=== PATIENT | male | born 2000 | race Caucasian/White ===

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

== ENCOUNTER 2022-11-20 08:20 | Emergency (ER) | payer BC, OTHER, SELFPAY ==
[2022-11-20] MEDS ORDERED: Bupivacaine HCl 0.5%/Epinephrine 1:200,000/PF 30 ml Vial ONE (08:39)
[2022-11-20] MEDS ORDERED: Cephalexin 250 MG CAP ONE (08:51)
== END 2022-11-20 09:06 | disposition home or self-care (01) ==
LOC: BURERS 08:20
DX: K04.7 Periapical abscess without sinus (principal)
CPT/HCPCS: 99282